=== PATIENT | female | born 1995 | race Caucasian/White ===

== ENCOUNTER 2020-03-10 14:40 | Inpatient (IN) | payer BC ==
[2020-03-10] MEDS ORDERED: Nalbuphine 10 MG/ML Syringe IVPUSH PRN (14:49)
[2020-03-10] MEDS ORDERED: Oxytocin/Lactated Ringers 10 UNIT/1,000 ML BAG IV SCH ×2 (15:00)
[2020-03-10] MEDS ORDERED: fentaNYL 100 MCG/2 ML SDV EPIDUR PRN (15:01)
[2020-03-10] MEDS ORDERED: ePHEDrine 50 MG/ML SDV IVPUSH PRN (15:01)
[2020-03-10] MEDS ORDERED: Ondansetron 4 MG/2 ML SDV IVPUSH PRN (15:01)
--- NOTE | 2020-03-10 15:07 | PCM.PREANE ---
Preanesthetic Assessment - Procedure Proposed Procedure: Epidural - Anesthesia/Transfusion/Family Hx Anesthesia History: Prior Anesthesia Without Reaction Family History of Anesthesia Reaction: No Transfusion History: No Prior Transfusion(s) Intubation History: Unknown - Review of Systems General: No Symptoms (Covid positive: one week ago/head cold), Fever, Chills Pulmonary: No Symptoms Cardiovascular: No Symptoms (Gestational HTN-Hyperreflexia), Edema Gastrointestinal: No Symptoms, Diarrhea, Nausea, Vomiting Neurological: No Symptoms (chiropractor with lower back pain), Headache (Migraines ) Other: Reports: None - Physical Assessment NPO Status Date: 03/10/20 NPO Status Time: 18:00 Vital Signs: HR: Sat: Temp: Resp: B/P: Height: 1.75 m Weight: 100.607 kg ASA Class: 2 Mental Status: Alert & Oriented x3 Airway Class: Mallampati = 2 Dentition: Reports: Normal Dentition, Caries Thyro-Mental Finger Breadths: 3 Mouth Opening Finger Breadths: 3 ROM/Head Extension: Full Lungs: Clear to Auscultation, Normal Respiratory Effort Cardiovascular: Regular Rate, Regular Rhythm, No Murmurs - Lab Values: All labs reviewed and noted and within acceptable ranges to proceed with epidural. - Allergies Allergies/Adverse Reactions: Allergies Allergy/AdvReac Type Severity Reaction Status Date / Time mushroom Allergy Anaphylactic Verified 03/10/20 14:58 Shock - Anesthesia Plan Pre-Op Medication Ordered: None - Acknowledgements Anesthesia Type Planned: Epidural Pt an Appropriate Candidate for the Planned Anesthesia: Yes Alternatives and Risks of Anesthesia Discussed w Pt/Guardian: Yes Pt/Guardian Understands and Agrees with Anesthesia Plan: Yes PreAnesthesia Questionnaire - HOME MEDS Home Medications: Home Meds Pnv No.103/Folic/Om3s/Fish Oil [ Gummies] 1 each PO DAILY 02/23/20 [History] Acetaminophen/Codeine [Tylenol with Codeine No.3 300MG/30MG] 1 tab PO ASDIRECTED PRN 03/10/20 [History] Ondansetron [Zofran] 1 tab PO DAILY PRN 03/10/20 [History] - CURRENT (IN HOUSE) MEDS Current Meds: Current Medications Ephedrine Sulfate (Ephedrine Sulfate) 5 mg IVPUSH ASDIRECTED PRN PRN Reason: Hypotension Fentanyl (Sublimaze) 100 mcg EPIDUR Q3H PRN PRN Reason: Pain Fentanyl/Bupivacaine HCl (Fentanyl/Bupivacaine/Ns 2 Mcg-0.125% 100 Ml) 100 ml EPIDUR ASDIRECTED KAY Lactated Ringer's (Ringers, Lactated) 1,000 mls @ 100 mls/hr IV ASDIRECTED KAY Ampicillin Sodium 2 gm/ Sodium (Chloride) 100 mls @ 200 mls/hr IV ONETIME ONE Stop: 03/10/20 15:59 Ampicillin Sodium 1 gm/ Sodium (Chloride) 100 mls @ 200 mls/hr IV Q4H KAY Oxytocin/Lactated Ringer's (Pitocin In Lr 10 Units/1,000 Ml) 10 unit in 1,000 mls @ 12 mls/hr IV TITRATE KAY; Protocol Oxytocin/Lactated Ringer's (Pitocin In Lr 10 Units/1,000 Ml) 10 unit in 1,000 mls @ 100 mls/hr IV .CONTINUOUS KAY Nalbuphine HCl (Nubain) 10 mg IVPUSH Q2H PRN PRN Reason: Pain Ondansetron HCl (Zofran) 4 mg IVPUSH Q4H PRN PRN Reason: Nausea/Vomiting Ondansetron HCl (Zofran) 4 mg IVPUSH ONETIME PRN PRN Reason: Nausea/Vomiting Discontinued Medications Miscellaneous Medication (Phenylephrine 1 Mg/10 Ml-Ns) 1 mg IVPUSH ONETIME ONE Stop: 03/10/20 15:02
[2020-03-10] MEDS ORDERED: Bupivacaine/fentaNYL/NS 100 ML Bag EPIDUR SCH (15:15)
[2020-03-10] MEDS ORDERED: Ampicillin 2 GM in Sodium Chloride 0.9% 100 ML IV ONE (15:30)
[2020-03-10] MEDS: Lactated Ringers 1,000 ML IV SCH ×2 (15:33→22:09)
--- NOTE | 2020-03-10 17:56 | PCM.LDHP ---
L&D History of Present Illness - General Date of Service: 03/10/20 Admit Problem/Dx: Patient Status Order with Admit Dx/Problem 03/10/20 14:49 Patient Status [ADT] Routine Admission Diagnosis/Problem Admission Diagnosis/Problem 03/10/20 17:42 Mile is a 23-year-old 1 para 0 white female who was admitted to labor and delivery at 38-3/7 weeks gestational age with an ABDI of 03/21/2020 with co mplaints of headache, edema, visual changes including blurry vision and double vision, hyperreflexia and borderline elevated blood pressures with findings consistent most probably with gestational hypertension. Source of Information: Patient History Limitations: Reports: No Limitations - History of Present Illness Introduction:: Mile is a 23-year-old 1 para 0 white female who was admitted to labor and delivery at 38-3/7 weeks gestational age with an ABDI of 03/21/2020 with complaints of headache, edema, visual changes including blurry vision and double vision, hyperreflexia and borderline elevated blood pressures with findings consistent most probably with gestational hypertension. Upon admission to labor and delivery patient was noted to be Covid positive and with rapid testing. LIQUOR RECTIFIER history: Mile is a 23-year-old 1 para 0. ADBI of 03/21/2020 is determined an early ultrasound and supported by multiple ultrasounds during the course of the remainder of the . Patient had menarche at approximately age 13. Cycles are regular. Last menstrual period was 05/11/2019 but was somewhat irregular and uncertain. ABDI set by early ultrasound. Patient denies any STIs. She denies any abnormal Pap smears. She is sexually active. course: Patient was initially seen early in the first trimester. She was seen on a regular basis throughout the course of the . Her weight gain was from her pregravid weight of 184 pounds to 224 pounds for 35 pound increase throughout the . Her fundal height growth has been appropriate. She is group B strep positive and is a candidate for ampicillin prophylaxis in L&D. She had a history of bacterial vaginosis that was treated during the course of the . She desires epidural. She has had frequent headaches during the . She plans to breast-feed. Prequel noninvasive screen was performed and is negative. Patient had elevated blood pressures during the course of the which started at approximately 6 weeks. Patient was evaluated on multiple occasions in clinic and at home with blood pressures in the 148-159 systolic range over the low to mid and upper 90s diastolic. The patient's protein creatinine ratio was mildly elevated. Remainder of preeclampsia labs were unremarkable. Blood pressures then normalized over the course of the last 1 to 2 weeks. She reports her blood pressures now at home on a daily basis have been in the 130s to high 80s to 90 range. She has become progressively more symptomatic with the above symptoms over the last week. Baby's activity has been normal. Patient received her influenza immunization on 02/02/2020. Her Tdap was given at the same time. She is rubella immune. Laboratory testing in shows blood to be A positive. First labs showed antibody screen to be negative. Her hemoglobin was 12.8 g/dL and platelets are 324,000. She is rubella immune. RPR is nonreactive. Hepatitis B surface antigen and HIV assays were both negative. GC and Chlamydia tests were both negative. Second trimester labs showed a hemoglobin of 11.4 g/dL and platelets that were 251,000. Her 1 hour GTT was normal at 79. Follow-up CBC on 02/22/2020 showed hemoglobin of 12.3 g/dL and platelets at 289,000. She is group B strep positive. Allergies: None Medications: 1. Tylenol 3 1-2 tabs every 4-6 hours as needed for headache 2. adult gummy vitamins daily. 3. Ferrous sulfate 325 mg p.o. daily. Past medical history: 1. Childhood asthma. Now resolved 2. Stomach ulcers evaluated with endoscopy and upper GI. Past surgical history: Unremarkable Family history: Mother with history of multiple miscarriage but otherwise is alive and well. Father is alive and well. Maternal grandmother with type 2 diabetes. Maternal grandfather with high cholesterol. Paternal grandmother with lung cancerwas a smoker. Paternal grandfather history unknown. Paternal great-grandmother with ovarian cancer historydeceased. No bleeding, clotting, anesthesia, asthma or related problems otherwise. Social history: Patient is single. She works for [employer]. She has recently been furloughed however. She is a college graduate. She lives in [place], [place] with her significant other Malik Marx. She does not use any significant also alcohol, drugs or tobacco. Review of systems: Patient has concerns in general are those as outlined in the HPI. Patient denies any fever chills or other systemic complaints. Baby has been active. HEENT, neck and back: Patient has had a chronic headache for some time progressive to the point of being 7 on a scale of 10 today. She denies any sore throat, lymphadenopathy. Skin: Negative Lungs: No infectious symptoms or shortness of breath Cardiovascular: No chest pain or exercise intolerance Breasts: No lumps, changes in size, pain, dimpling, discharge or axillary or supraclavicular concerns. GI: Negative : Changes associated with . Musculoskeletal: Negative Neurological: Negative Physical exam: In general the patient is well-developed, well-nourished, pleasant female of stated age in moderate distress secondary to headache and vision concerns On evaluation clinic blood pressure was 126/82. At home patient reported blood pressures to be 130s over high 80s.. Weight was 221.8. Her height is 5 feet 9. Prepregnancy body mass index was 24.8. Skin is warm dry without lesions. HEENT, neck and back within normal limits. Lungs are clear with good breath sounds in all lung anderson. Cardiovascular exam shows regular and rhythm without murmurs. Abdomen is gravid with fundal height of 40 cm. Baby in vertex presentation by Oscar maneuvers.. Genital evaluation per digital exam shows cervix to be 2 cm, 90% effaced, -3 station but had well applied to the cervix, mid position, soft. AROM is acc omplished with resultant clear amniotic fluid. AROM performed only after approximately 2 hours since first dose of ampicillin. Extremities show bilateral pedal edema which is 1+ in nature. This is been progressive over the last week. Neurological exam is within normal to the exception of 3+/4 deep tendon refill complexes in bilateral lower extremities. 2+/4 in bilateral upper extremities. No clonus is noted. Laboratory testing shows CBC with an H&H of 12.0 and 35.8. White count 7.72. Platelets 261,000. Fibrin degradation products less than 5. Fibrinogen 509. Liver function studies normal. Uric acid 5.8. Creatinine 0.6. Urine analysis unremarkable. - Related Data Allergies/Adverse Reactions: Allergies Allergy/AdvReac Type Severity Reaction Status Date / Time mushroom Allergy Anaphylactic Verified 03/10/20 14:58 Shock Home Medications: Home Meds Ferrous Sulfate [Iron] 325 mg PO DAILY 02/23/20 [History] Pnv No.103/Folic/Om3s/Fish Oil [ Gummies] 1 each PO DAILY 02/23/20 [History] Past Medical History Other Respiratory History: hx of asthma as a child; resolved Gastrointestinal History: Reports: Other (See Below) Other Gastrointestinal History: stomach ulcer LIQUOR RECTIFIER History: Reports: - Past Surgical History GI Surgical History: Reports: EGD Social & Family History - Tobacco Use Tobacco Use Status *Q: Never Tobacco User - Recreational Drug Use Recreational Drug Use: No H&P Review of Systems - Review of Systems: Review Of Systems: See Below L&D Exam - Exam Exam: See Below - Vital Signs Weight: 100.607 kg - Patient Data Lab Results Last 24 hrs: Laboratory Results - last 24 hr 03/10/20 03/10/20 03/10/20 Range/Units 15:00 15:20 15:20 WBC 7.72 (3.98-10.04) K/mm3 RBC 4.23 (3.98-5.22) M/mm3 Hgb 12.0 (11.2-15.7) gm/dl Hct 35.8 (34.1-44.9) % MCV 84.6 (79.4-94.8) fl MCH 28.4 (25.6-32.2) pg MCHC 33.5 (32.2-35.5) g/dl RDW Std Deviation 42.0 (36.4-46.3) fL Plt Count 261 (182-369) K/mm3 MPV 9.7 (9.4-12.3) fl Neut % (Auto) 74.5 H (34.0-71.1) % Lymph % (Auto) 17.5 L (19.3-51.7) % Peach % (Auto) 6.9 (4.7-12.5) % Eos % (Auto) 0.4 L (0.7-5.8) Baso % (Auto) 0.1 (0.1-1.2) % Neut # (Auto) 5.75 (1.56-6.13) K/mm3 Lymph # (Auto) 1.35 (1.18-3.74) K/mm3 Peach # (Auto) 0.53 H (0.24-0.36) K/mm3 Eos # (Auto) 0.03 L (0.04-0.36) K/mm3 Baso # (Auto) 0.01 (0.01-0.08) K/mm3 Fibrinogen 509 H (187-446) mg/dL Fibrin Degrad Products < 5 ug/ml (<5) ug/mL BUN (7-18) mg/dL Creatinine (0.55-1.02) mg/dL Est Cr Clr Drug Dosing mL/min Estimated GFR (MDRD) (>60) mL/min Uric Acid (2.6-6.0) mg/dL AST (15-37) U/L ALT (14-59) U/L Lactate Dehydrogenase (81-234) U/L SARS-CoV-2 RNA (RADHA) Positive H (NEGATIVE) Blood Type Gel Antibody Screen 03/10/20 03/10/20 Range/Units 15:20 15:20 WBC (3.98-10.04) K/mm3 RBC (3.98-5.22) M/mm3 Hgb (11.2-15.7) gm/dl Hct (34.1-44.9) % MCV (79.4-94.8) fl MCH (25.6-32.2) pg MCHC (32.2-35.5) g/dl RDW Std Deviation (36.4-46.3) fL Plt Count (182-369) K/mm3 MPV (9.4-12.3) fl Neut % (Auto) (34.0-71.1) % Lymph % (Auto) (19.3-51.7) % Peach % (Auto) (4.7-12.5) % Eos % (Auto) (0.7-5.8) Baso % (Auto) (0.1-1.2) % Neut # (Auto) (1.56-6.13) K/mm3 Lymph # (Auto) (1.18-3.74) K/mm3 Peach # (Auto) (0.24-0.36) K/mm3 Eos # (Auto) (0.04-0.36) K/mm3 Baso # (Auto) (0.01-0.08) K/mm3 Fibrinogen (187-446) mg/dL Fibrin Degrad Products (<5) ug/mL BUN 5 L (7-18) mg/dL Creatinine 0.6 (0.55-1.02) mg/dL Est Cr Clr Drug Dosing 152.40 mL/min Estimated GFR (MDRD) > 60 (>60) mL/min Uric Acid 5.8 (2.6-6.0) mg/dL AST 21 (15-37) U/L ALT 24 (14-59) U/L Lactate Dehydrogenase 167 (81-234) U/L SARS-CoV-2 RNA (RADHA) (NEGATIVE) Blood Type A POSITIVE Gel Antibody Screen Negative Result Diagrams: 03/10/20 15:20 03/10/20 15:20 Problem List Initiated/Reviewed/Updated: Yes Orders Last 24hrs: Active Orders 24 hr Category Date Time Status Patient Status [ADT] Routine ADT 03/10/20 14:49 Active Activity as Tolerated [RC] PFP Care 03/10/20 14:49 Active Communication Order [RC] ASDIRECTED Care 03/10/20 14:49 Active Heart Tones [RC] ASDIRECTED Care 03/10/20 14:50 Active Non Stress Test [RC] PER UNIT ROUTINE Care 03/10/20 14:49 Active Notify Provider [RC] ASDIRECTED Care 03/10/20 15:01 Active Notify Provider [RC] PFP Care 03/10/20 14:49 Active Notify Provider [RC] PRN Care 03/10/20 14:49 Active Oxygen Therapy [RC] ASDIRECTED Care 03/10/20 15:01 Active Pulse Oximetry [RC] ASDIRECTED Care 03/10/20 15:01 Active Vital Signs [RC] PER UNIT ROUTINE Care 03/10/20 14:49 Active Regular Diet [DIET] Diet 03/10/20 Lunch Active PROTEIN/CREATININE RATIO,URINE [URCHEM] Stat Lab 03/10/20 16:24 Received RAPID PLASMA REAGIN,RPR [CHEM] Routine Lab 03/10/20 15:20 Received UA W/MICROSCOPIC [URIN] Stat Lab 03/10/20 16:24 Received Ampicillin 1 gm Med 03/10/20 19:30 Active Sodium Chloride 0.9% [Normal Saline] 100 ml IV Q4H Bupivacaine/fentaNYL/NS [fentaNYL/Bupivacaine/NS 2 MCG- Med 03/10/20 15:15 Active 0.125% 100 ML] 100 ml EPIDUR ASDIRECTED Lactated Ringers [Ringers, Lactated] 1,000 ml Med 03/10/20 15:00 Active IV ASDIRECTED Nalbuphine [Nubain] Med 03/10/20 14:49 Active 10 mg IVPUSH Q2H PRN Ondansetron [Zofran] Med 03/10/20 15:01 Active 4 mg IVPUSH ONETIME PRN Ondansetron [Zofran] Med 03/10/20 14:49 Active 4 mg IVPUSH Q4H PRN Oxytocin/Lactated Ringers [Pitocin in LR 10 Units/1,000 Med 03/10/20 15:00 Active ML] 10 unit in 1,000 ml IV .CONTINUOUS Oxytocin/Lactated Ringers [Pitocin in LR 10 Units/1,000 Med 03/10/20 15:00 Active ML] 10 unit in 1,000 ml IV TITRATE ePHEDrine [ePHEDrine sulfate] Med 03/10/20 15:01 Active 5 mg IVPUSH ASDIRECTED PRN fentaNYL [Sublimaze] Med 03/10/20 15:01 Active 100 mcg EPIDUR Q3H PRN Electronic Heart Tones Ext w TOCO [WOMSER] Oth 03/10/20 14:49 Ordered Routine Electronic Heart Tones Internal [WOMSER] Per Unit Oth 03/10/20 14:49 Ordered Routine PIH Panel [OM.PC] Stat Oth 03/10/20 14:49 Ordered Peripheral IV Insertion Adult [OM.PC] Routine Oth 03/10/20 14:49 Ordered Resuscitation Status Routine Resus Stat 03/10/20 14:49 Ordered Medication Orders Ephedrine Sulfate (Ephedrine Sulfate) 5 mg IVPUSH ASDIRECTED PRN PRN Reason: Hypotension Fentanyl (Sublimaze) 100 mcg EPIDUR Q3H PRN PRN Reason: Pain Fentanyl/Bupivacaine HCl (Fentanyl/Bupivacaine/Ns 2 Mcg-0.125% 100 Ml) 100 ml EPIDUR ASDIRECTED KAY Lactated Ringer's (Ringers, Lactated) 1,000 mls @ 100 mls/hr IV ASDIRECTED KAY Last Admin: 03/10/20 15:33 Dose: 100 mls/hr Documented by: ILANALAU Ampicillin Sodium 1 gm/ Sodium (Chloride) 100 mls @ 200 mls/hr IV Q4H KAY Oxytocin/Lactated Ringer's (Pitocin In Lr 10 Units/1,000 Ml) 10 unit in 1,000 mls @ 12 mls/hr IV TITRATE KAY; Protocol Last Admin: 03/10/20 16:08 Dose: 2 munits/min, 12 mls/hr Documented by: JOHNNIE Oxytocin/Lactated Ringer's (Pitocin In Lr 10 Units/1,000 Ml) 10 unit in 1,000 mls @ 100 mls/hr IV .CONTINUOUS KAY Nalbuphine HCl (Nubain) 10 mg IVPUSH Q2H PRN PRN Reason: Pain Last Admin: 03/10/20 15:33 Dose: 10 mg Documented by: JOHNNIE Ondansetron HCl (Zofran) 4 mg IVPUSH Q4H PRN PRN Reason: Nausea/Vomiting Ondansetron HCl (Zofran) 4 mg IVPUSH ONETIME PRN PRN Reason: Nausea/Vomiting Assessment/Plan Comment:: 1. 38-3/7-week intrauterine , multiple symptoms/clinical signs supporting diagnosis of gestational hypertensionpatient admitted for induction of labor. 2. Covid19+ status diagnosed at time of admission to labor and delivery 3. Group B strep positive statuspatient candidate for ampicillin prophylaxis in labor and delivery 4. Patient desires epidural 5. Patient plans to breast-feed 6. Risk factors otherwise for include increased weight, Gestational hypertension, Covid positive status 7. Patient is rubella immune 8. Patient is received her flu immunization and her Tdap during the course of the Plan: 1. Pitocin/artificial rupture of membranes induction of labor per routine 2. Electronic monitoring 3. Covid19 precautions to be implemented 4. Epidural as needed for labor analgesia 5. Support breast-feeding decision. 6. RPR, CBC upon admission 7. Anticipate normal spontaneous vaginal delivery
[2020-03-10] MEDS ORDERED: Calcium Carbonate 500 MG Tab.Chew PO PRN (18:11)
[2020-03-10] MEDS: Ondansetron 4 MG/2 ML SDV IVPUSH PRN (18:50)
[2020-03-10] MEDS: Ampicillin 1 GM in Sodium Chloride 0.9% 100 ML IV SCH ×2 (19:19→23:22)
[2020-03-11] MEDS: Lactated Ringers 1,000 ML IV SCH (00:24)
[2020-03-11] MEDS: Ondansetron 4 MG/2 ML SDV IVPUSH PRN (01:21)
--- NOTE | 2020-03-11 04:04 | PCM.SN.2 ---
- Free Text/Narrative Note: Delivery note: Mile is a 23-year-old 1 para 0 white female who was admitted to labor and delivery at 38-3/7 weeks gestational age with an ABDI of 03/21/2020 with complaints of headache, edema, visual changes including blurry vision and double vision, hyperreflexia and borderline elevated blood pressures with findings consistent most probably with gestational hypertension. She underwent induction of labor with Pitocin initially and AROM later with resultant clear amniotic fluid. She had preeclampsia labs drawn which returned essentially within normal limits. She was found to be Covid positive upon admission to L&D. Isolation precautions thereafter were taken per routine. She had an epidural placed for labor analgesia and had good results with the epidural. She progressed in labor throughout the course of the evening night and at approximately 0300 hrs. on 03/11/2020 she became completely dilated. She pushed for short period of time and delivered a viable, corbin, female infant with Apgars of 9 and 9, a weight of 3286 grams (7 pounds, 4 ounces) in a direct occiput anterior position at 0334 hrs. on 03/11/2020. The baby was placed on mom's abdomen. Cord was allowed to pulsate for 3 minutes. The Pitocin was increased to 500 cc/h to facilitate increase in uterine tone and reduce likelihood of bleeding. The umbilical cord was then clamped x2 and cut by the baby's Father Malik. The umbilical cord had 3 vessels. Cord blood was obtained. Patient was noted to have a very small first-degree perineal laceration which was repaired with 1 single [id number] suture of 3-0 Monocryl. Epidural analgesia was used for perineal anesthesia for this suture. The placenta delivered in a Ho presentation, appeared intact and complete and was discarded per patient desire. The patient plans to breast-feed. Isolation precautions will be taken regarding Covid positive status. Estimated blood loss was 100 cc. Condition: Good
[2020-03-11] MEDS ORDERED: Witch Hazel Medicated Pads 40/Jar TOP PRN (04:55)
[2020-03-11] MEDS ORDERED: Benzocaine/Menthol 20%-0.5% Spray 56 GM Canister TOP PRN (04:55)
[2020-03-11] MEDS: Acetaminophen 325 MG Tab PO PRN (05:23)
[2020-03-11] MEDS: Prenatal Multivitamin with Calcium/Folic Acid/Iron Tab PO SCH (09:00)
--- NOTE | 2020-03-11 10:03 | PCM48HPAN ---
Post Anesthesia Note - EVALUATION WITHIN 48HRS OF ANESTHETIC Vital Signs in Normal Range: Yes Patient Participated in Evaluation: No (per RN) Respiratory Function Stable: Yes Airway Patent: Yes Cardiovascular Function Stable: Yes Hydration Status Stable: Yes Pain Control Satisfactory: Yes Nausea and Vomiting Control Satisfactory: Yes Mental Status Recovered: Yes Vital Signs: Last Vital Signs Temp 37.0 C 03/11/20 09:00 Pulse 57 L 03/11/20 09:00 Resp 16 03/11/20 09:00 BP 127/71 03/11/20 09:00 Pulse Ox 100 03/11/20 09:00 - COMMENTS/OBSERVATIONS Free Text/Narrative:: no anesthesia complications noted
[2020-03-11] MEDS: Ibuprofen 600 MG Tab PO PRN ×3 (11:00→20:16)
[2020-03-11] MEDS ORDERED: Bupivacaine 0.25% 10 ML SDV ONE (14:00)
[2020-03-11] MEDS: Docusate Sodium 100 MG Cap PO PRN (20:16)
--- NOTE | 2020-03-12 00:57 | PCM.PNPP ---
- General Info Date of Service: 03/12/20 Functional Status: Reports: Pain Controlled, Tolerating Diet, Ambulating, Urinating - Review of Systems General: Reports: No Symptoms Pulmonary: Reports: No Symptoms Cardiovascular: Reports: No Symptoms Gastrointestinal: Reports: No Symptoms Genitourinary: Reports: No Symptoms Musculoskeletal: Reports: No Symptoms Neurological: Reports: No Symptoms - Patient Data Vital Signs - Most Recent: Last Vital Signs Temp 36.4 C 03/11/20 20:11 Pulse 64 03/11/20 20:11 Resp 16 03/11/20 20:11 BP 113/72 03/11/20 20:11 Pulse Ox 99 03/11/20 20:11 Weight - Most Recent: 100.607 kg I&O - Last 24 Hours: Intake & Output 03/11/20 03/11/20 03/12/20 14:59 22:59 06:59 Intake Total 450 Balance 450 Med Orders - Current: Current Medications Acetaminophen (Tylenol) 650 mg PO Q4H PRN PRN Reason: mild pain or fever Last Admin: 03/11/20 05:23 Dose: 650 mg Documented by: Benzocaine/Menthol (Dermoplast Pain Relief [place]) 0 gm TOP ASDIRECTED PRN PRN Reason: Perineal Comfort Measure Last Admin: 03/11/20 05:21 Dose: 1 canister Documented by: Docusate Sodium (Colace) 100 mg PO BID PRN PRN Reason: Constipation Last Admin: 03/11/20 20:16 Dose: 100 mg Documented by: Ibuprofen (Motrin) 600 mg PO Q4H PRN PRN Reason: Mild pain or fever Last Admin: 03/11/20 20:16 Dose: 600 mg Documented by: Prenat Multivit/Pitt/Iron/Folic Ac ( Plus Iron) 1 each PO DAILY KAY Last Admin: 03/11/20 09:00 Dose: 1 each Documented by: Andrea Juarez ([facility]) 1 pad TOP ASDIRECTED PRN PRN Reason: Perineal Comfort Measure Last Admin: 03/11/20 05:22 Dose: 1 tub Documented by: Discontinued Medications Bupivacaine HCl (Sensorcaine-Mpf 0.25%) 10 ml .ROUTE .STK-MED ONE Stop: 03/11/20 14:01 Calcium Carbonate/Glycine (Tums) 500 mg PO Q2HR PRN PRN Reason: Indigestion Last Admin: 03/10/20 18:50 Dose: 500 mg Documented by: Ephedrine Sulfate (Ephedrine Sulfate) 5 mg IVPUSH ASDIRECTED PRN PRN Reason: Hypotension Fentanyl (Sublimaze) 100 mcg EPIDUR Q3H PRN PRN Reason: Pain Last Admin: 03/10/20 22:10 Dose: 100 mcg Documented by: Fentanyl/Bupivacaine HCl (Fentanyl/Bupivacaine/Ns 2 Mcg-0.125% 100 Ml) 100 ml EPIDUR ASDIRECTED KAY Last Admin: 03/10/20 22:11 Dose: 100 ml Documented by: Lactated Ringer's (Ringers, Lactated) 1,000 mls @ 100 mls/hr IV ASDIRECTED [facility] Last Admin: 03/11/20 00:24 Dose: 100 mls/hr Documented by: Ampicillin Sodium 2 gm/ Sodium (Chloride) 100 mls @ 200 mls/hr IV ONETIME ONE Stop: 03/10/20 15:59 Last Admin: 03/10/20 15:33 Dose: 200 mls/hr Documented by: Ampicillin Sodium 1 gm/ Sodium (Chloride) 100 mls @ 200 mls/hr IV Q4H [facility] Last Admin: 03/10/20 23:22 Dose: 200 mls/hr Documented by: Oxytocin/Lactated Ringer's (Pitocin In Lr 10 Units/1,000 Ml) 10 unit in 1,000 mls @ 12 mls/hr IV TITRATE [facility]; Protocol Last Titration: 03/10/20 18:00 Dose: 8 munits/min, 48 mls/hr Documented by: Oxytocin/Lactated Ringer's (Pitocin In Lr 10 Units/1,000 Ml) 10 unit in 1,000 mls @ 100 mls/hr IV .CONTINUOUS [facility] Miscellaneous Medication (Phenylephrine 1 Mg/10 Ml-Ns) 1 mg IVPUSH ONETIME ONE Stop: 03/10/20 15:02 Nalbuphine HCl (Nubain) 10 mg IVPUSH Q2H PRN PRN Reason: Pain Last Admin: 03/10/20 15:33 Dose: 10 mg Documented by: Ondansetron HCl (Zofran) 4 mg IVPUSH Q4H PRN PRN Reason: Nausea/Vomiting Last Admin: 03/11/20 01:21 Dose: 4 mg Documented by: Ondansetron HCl (Zofran) 4 mg IVPUSH ONETIME PRN PRN Reason: Nausea/Vomiting - Infant Interaction Disposition, : in Room with Family Infant Interaction: Holding Infant Infant Feeding: Bottle Fed Support Person: Significant Other - Recovery Exam Fundal Tone: Firm Fundal Level: At Umbilicus Fundal Placement: Midline Lochia Amount: Small, Moderate Lochia Color: Rubra/Red Episiotomy/Laceration: Approximated Bladder Status: Voiding - Exam General: Alert, Oriented, Cooperative GI/Abdominal Exam: Soft, Non-Tender Extremities: Normal Inspection - Problem List & Annotations (1) Gestational [-induced] hypertension without significant proteinuria, complicating childbirth SNOMED Code(s): 20426754, 978832469 Code(s): O13.4 - GESTATNL HTN WITHOUT SIGNIFICANT PROTEIN, COMP CHILDBIRTH Status: Acute Current Visit: Yes (2) Vaginal delivery SNOMED Code(s): 336077992 Code(s): O80 - ENCOUNTER FOR FULL-TERM UNCOMPLICATED DELIVERY Status: Acute Current Visit: Yes (3) COVID-19 affecting , antepartum SNOMED Code(s): 725571634, 093694898 Code(s): O98.519 - OTHER VIRAL DISEASES COMPLICATING , UNSP TRIMESTER; U07.1 - COVID-19 Status: Acute Current Visit: Yes - Problem List Review Problem List Initiated/Reviewed/Updated: Yes - Assessment Assessment:: PPD#1 - Plan Plan:: * Routine cares * bottle feeding * BP's have been mostly normal since delivery, one elevated value documented. Continue to monitor closely * COVID positive - continue to monitor. Asymptomatic * Discharge home tomorrow
[2020-03-12] MEDS: Ibuprofen 600 MG Tab PO PRN ×3 (02:11→20:52)
[2020-03-12] MEDS: Acetaminophen 325 MG Tab PO PRN (04:02)
[2020-03-12] MEDS: Docusate Sodium 100 MG Cap PO PRN (08:57)
[2020-03-12] MEDS: Prenatal Multivitamin with Calcium/Folic Acid/Iron Tab PO SCH (17:07)
[2020-03-13] MEDS: Ibuprofen 600 MG Tab PO PRN (03:27)
--- NOTE | 2020-03-13 07:25 | PCM.PNPP ---
- General Info Date of Service: 03/13/20 Functional Status: Reports: Pain Controlled, Tolerating Diet, Ambulating, Urinating - Review of Systems General: Reports: No Symptoms Pulmonary: Reports: No Symptoms Cardiovascular: Reports: No Symptoms Gastrointestinal: Reports: No Symptoms Genitourinary: Reports: No Symptoms Musculoskeletal: Reports: No Symptoms - Patient Data Vital Signs - Most Recent: Last Vital Signs Temp 36.8 C 03/13/20 03:24 Pulse 70 03/13/20 03:24 Resp 15 03/13/20 03:24 BP 115/72 03/13/20 03:24 Pulse Ox 98 03/13/20 03:24 Weight - Most Recent: 100.607 kg Med Orders - Current: Current Medications Acetaminophen (Tylenol) 650 mg PO Q4H PRN PRN Reason: mild pain or fever Last Admin: 03/12/20 04:02 Dose: 650 mg Documented by: Benzocaine/Menthol (Dermoplast Pain Relief [place]) 0 gm TOP ASDIRECTED PRN PRN Reason: Perineal Comfort Measure Last Admin: 03/11/20 05:21 Dose: 1 canister Documented by: Docusate Sodium (Colace) 100 mg PO BID PRN PRN Reason: Constipation Last Admin: 03/12/20 08:57 Dose: 100 mg Documented by: Ibuprofen (Motrin) 600 mg PO Q4H PRN PRN Reason: Mild pain or fever Last Admin: 03/13/20 03:27 Dose: 600 mg Documented by: Prenat Multivit/Office Support Clerk/Iron/Folic Ac ( Plus Iron) 1 each PO DAILY KAY Last Admin: 03/12/20 17:07 Dose: Not Given Documented by: Andrea Juarez ([facility]) 1 pad TOP ASDIRECTED PRN PRN Reason: Perineal Comfort Measure Last Admin: 03/11/20 05:22 Dose: 1 tub Documented by: Discontinued Medications Bupivacaine HCl (Sensorcaine-Mpf 0.25%) 10 ml .ROUTE .STK-MED ONE Stop: 03/11/20 14:01 Calcium Carbonate/Glycine (Tums) 500 mg PO Q2HR PRN PRN Reason: Indigestion Last Admin: 03/10/20 18:50 Dose: 500 mg Documented by: Ephedrine Sulfate (Ephedrine Sulfate) 5 mg IVPUSH ASDIRECTED PRN PRN Reason: Hypotension Fentanyl (Sublimaze) 100 mcg EPIDUR Q3H PRN PRN Reason: Pain Last Admin: 03/10/20 22:10 Dose: 100 mcg Documented by: Fentanyl/Bupivacaine HCl (Fentanyl/Bupivacaine/Ns 2 Mcg-0.125% 100 Ml) 100 ml EPIDUR ASDIRECTED [facility] Last Admin: 03/10/20 22:11 Dose: 100 ml Documented by: Lactated Ringer's (Ringers, Lactated) 1,000 mls @ 100 mls/hr IV ASDIRECTED [facility] Last Admin: 03/11/20 00:24 Dose: 100 mls/hr Documented by: Ampicillin Sodium 2 gm/ Sodium (Chloride) 100 mls @ 200 mls/hr IV ONETIME ONE Stop: 03/10/20 15:59 Last Admin: 03/10/20 15:33 Dose: 200 mls/hr Documented by: Ampicillin Sodium 1 gm/ Sodium (Chloride) 100 mls @ 200 mls/hr IV Q4H [facility] Last Admin: 03/10/20 23:22 Dose: 200 mls/hr Documented by: Oxytocin/Lactated Ringer's (Pitocin In Lr 10 Units/1,000 Ml) 10 unit in 1,000 mls @ 12 mls/hr IV TITRATE [facility]AY; Protocol Last Titration: 03/10/20 18:00 Dose: 8 munits/min, 48 mls/hr Documented by: Oxytocin/Lactated Ringer's (Pitocin In Lr 10 Units/1,000 Ml) 10 unit in 1,000 mls @ 100 mls/hr IV .CONTINUOUS [facility] Miscellaneous Medication (Phenylephrine 1 Mg/10 Ml-Ns) 1 mg IVPUSH ONETIME ONE Stop: 03/10/20 15:02 Nalbuphine HCl (Nubain) 10 mg IVPUSH Q2H PRN PRN Reason: Pain Last Admin: 03/10/20 15:33 Dose: 10 mg Documented by: Ondansetron HCl (Zofran) 4 mg IVPUSH Q4H PRN PRN Reason: Nausea/Vomiting Last Admin: 03/11/20 01:21 Dose: 4 mg Documented by: Ondansetron HCl (Zofran) 4 mg IVPUSH ONETIME PRN PRN Reason: Nausea/Vomiting - Interaction Infant Disposition, : [place] in Room with Family Infant Interaction: Holding Infant Feeding: Bottle Fed Infant Support Person: Significant Other - Recovery Exam Fundal Tone: Firm Fundal Level: At Umbilicus Fundal Placement: Midline Lochia Amount: Small Lochia Color: Rubra/Red Perineum Description: Other (see below) Other Perinuem Description: 1st degree with repair Episiotomy/Laceration: Approximated Bladder Status: Nonpalpable, Voiding Urinary Elimination: Voided - Exam General: Alert, Oriented, Cooperative GI/Abdominal Exam: Soft, Non-Tender Extremities: Normal Inspection Skin: Warm, Dry, Intact - Problem List & Annotations (1) Gestational [-induced] hypertension without significant proteinuria, complicating childbirth SNOMED Code(s): 75036669, 934186939 Code(s): O13.4 - GESTATNL HTN WITHOUT SIGNIFICANT PROTEIN, COMP CHILDBIRTH Status: Acute Current Visit: Yes (2) Vaginal delivery SNOMED Code(s): 170465908 Code(s): O80 - ENCOUNTER FOR FULL-TERM UNCOMPLICATED DELIVERY Status: Acute Current Visit: Yes (3) COVID-19 affecting , antepartum SNOMED Code(s): 567262204, 491050588 Code(s): O98.519 - OTHER VIRAL DISEASES COMPLICATING , UNSP TRIMESTER; U07.1 - COVID-19 Status: Acute Current Visit: Yes - Problem List Review Problem List Initiated/Reviewed/Updated: Yes - My Orders Last 24 Hours: My Active Orders 03/13/20 07:25 Ready for Discharge [RC] PER UNIT ROUTINE - Assessment Assessment:: PPD#2 - Plan Plan:: * Routine cares * bottle feeding * BP's essentially normal - follow up with Dr. Olivares's clinic in about 1 week * COVID positive - Asymptomatic * Discharge home today
--- NOTE | 2020-03-13 07:26 | PCM.DCSUM1 ---
Discharge Summary - Discharge Data Discharge Date: 03/13/20 Discharge Disposition: Home, Self-Care 01 Condition: Good - Referral to Home Health Primary Care Physician: Johnny Olivares MD - Discharge Diagnosis/Problem(s) (1) Gestational [-induced] hypertension without significant proteinuria, complicating childbirth SNOMED Code(s): 19453999, 909935258 ICD Code: O13.4 - GESTATNL HTN WITHOUT SIGNIFICANT PROTEIN, COMP CHILDBIRTH Status: Acute Current Visit: Yes (2) Vaginal delivery SNOMED Code(s): 395464895 ICD Code: O80 - ENCOUNTER FOR FULL-TERM UNCOMPLICATED DELIVERY Status: Acute Current Visit: Yes (3) COVID-19 affecting , antepartum SNOMED Code(s): 252058553, 137538988 ICD Code: O98.519 - OTHER VIRAL DISEASES COMPLICATING , UNSP TRIMESTER; U07.1 - COVID-19 Status: Acute Current Visit: Yes - Patient Summary/Data Complications: None Consults: Consultations 03/11/20 07:22 Consult to Case Management/Food And Beverage Order Clerk [CONS] Routine Recommended Follow-up Testing/Procedures: Follow up in 2-3 weeks Hospital Course: 24 y/o at 38 3/7 wks who was admitted for IOL for gestational HTN. Did well with induction and underwent an uncomplicated . See delivery note. BP's mostly normal after delivery with rare mild range values. Otherwise was noted to be an asymptomatic carrier of COVID. Did well in regards to this diagnosis. Was discharged home on PPD#2 - Patient Instructions Diet: Regular Diet as Tolerated Activity: As Tolerated Activity, Other: Pelvic rest for 6 weeks Driving: May Drive Today Showering/Bathing: May Shower Showering/Bathing, Other: May Bathe Notify Provider of: Fever, Increased Pain, Swelling and Redness, Drainage, Nausea and/or Vomiting - Discharge Plan *PRESCRIPTION DRUG MONITORING PROGRAM REVIEWED*: No *COPY OF PRESCRIPTION DRUG MONITORING REPORT IN PATIENT [place]OTT[place]: No Home Medications: Home Meds Pnv No.103/Folic/Om3s/Fish Oil [ Gummies] 1 each PO DAILY 02/23/20 [History] Acetaminophen [Tylenol] 650 mg PO Q4H PRN tablet 03/13/20 [Rx] Docusate Sodium [Colace] 100 mg PO BID PRN cap 03/13/20 [Rx] Ibuprofen [Motrin] 600 mg PO Q4H PRN tablet 03/13/20 [Rx] Referrals: Johnny Olivares MD [Primary Care Provider] - (2-3 weeks for check ) - Discharge Summary/Plan Comment DC Time >30 min.: No - Patient Data Vitals - Most Recent: Last Vital Signs Temp 36.8 C 03/13/20 03:24 Pulse 70 03/13/20 03:24 Resp 15 03/13/20 03:24 BP 115/72 03/13/20 03:24 Pulse Ox 98 03/13/20 03:24 Weight - Most Recent: 100.607 kg Med Orders - Current: Current Medications Acetaminophen (Tylenol) 650 mg PO Q4H PRN PRN Reason: mild pain or fever Last Admin: 03/12/20 04:02 Dose: 650 mg Documented by: Benzocaine/Menthol (Dermoplast Pain Relief [place]) 0 gm TOP ASDIRECTED PRN PRN Reason: Perineal Comfort Measure Last Admin: 03/11/20 05:21 Dose: 1 canister Documented by: Docusate Sodium (Colace) 100 mg PO BID PRN PRN Reason: Constipation Last Admin: 03/12/20 08:57 Dose: 100 mg Documented by: Ibuprofen (Motrin) 600 mg PO Q4H PRN PRN Reason: Mild pain or fever Last Admin: 03/13/20 03:27 Dose: 600 mg Documented by: Prenat Multivit/Jar Capper/Iron/Folic Ac ( Plus Iron) 1 each PO DAILY KAY Last Admin: 03/12/20 17:07 Dose: Not Given Documented by: Andrea Juarez ([facility]) 1 pad TOP ASDIRECTED PRN PRN Reason: Perineal Comfort Measure Last Admin: 03/11/20 05:22 Dose: 1 tub Documented by: Discontinued Medications Bupivacaine HCl (Sensorcaine-Mpf 0.25%) 10 ml .ROUTE .STK-MED ONE Stop: 03/11/20 14:01 Calcium Carbonate/Glycine (Tums) 500 mg PO Q2HR PRN PRN Reason: Indigestion Last Admin: 03/10/20 18:50 Dose: 500 mg Documented by: Ephedrine Sulfate (Ephedrine Sulfate) 5 mg IVPUSH ASDIRECTED PRN PRN Reason: Hypotension Fentanyl (Sublimaze) 100 mcg EPIDUR Q3H PRN PRN Reason: Pain Last Admin: 03/10/20 22:10 Dose: 100 mcg Documented by: Fentanyl/Bupivacaine HCl (Fentanyl/Bupivacaine/Ns 2 Mcg-0.125% 100 Ml) 100 ml EPIDUR ASDIRECTED [facility] Last Admin: 03/10/20 22:11 Dose: 100 ml Documented by: Lactated Ringer's (Ringers, Lactated) 1,000 mls @ 100 mls/hr IV ASDIRECTED [facility] Last Admin: 03/11/20 00:24 Dose: 100 mls/hr Documented by: Ampicillin Sodium 2 gm/ Sodium (Chloride) 100 mls @ 200 mls/hr IV ONETIME ONE Stop: 03/10/20 15:59 Last Admin: 03/10/20 15:33 Dose: 200 mls/hr Documented by: Ampicillin Sodium 1 gm/ Sodium (Chloride) 100 mls @ 200 mls/hr IV Q4H [facility] Last Admin: 03/10/20 23:22 Dose: 200 mls/hr Documented by: Oxytocin/Lactated Ringer's (Pitocin In Lr 10 Units/1,000 Ml) 10 unit in 1,000 mls @ 12 mls/hr IV TITRATE [facility]; Protocol Last Titration: 03/10/20 18:00 Dose: 8 munits/min, 48 mls/hr Documented by: Oxytocin/Lactated Ringer's (Pitocin In Lr 10 Units/1,000 Ml) 10 unit in 1,000 mls @ 100 mls/hr IV .CONTINUOUS [facility] Miscellaneous Medication (Phenylephrine 1 Mg/10 Ml-Ns) 1 mg IVPUSH ONETIME ONE Stop: 03/10/20 15:02 Nalbuphine HCl (Nubain) 10 mg IVPUSH Q2H PRN PRN Reason: Pain Last Admin: 03/10/20 15:33 Dose: 10 mg Documented by: Ondansetron HCl (Zofran) 4 mg IVPUSH Q4H PRN PRN Reason: Nausea/Vomiting Last Admin: 03/11/20 01:21 Dose: 4 mg Documented by: Ondansetron HCl (Zofran) 4 mg IVPUSH ONETIME PRN PRN Reason: Nausea/Vomiting
== END 2020-03-13 11:25 | disposition home or self-care (01) | DRG 560 ==
LOC: JD.OB 14:40 → OBSVTOIN 03-11 03:34 → JD.MS 03-11 03:35 → JD.OB 03-11 14:00
PROVIDERS: ADMIT Obstetrics & Gynecology; ATTEND Obstetrics & Gynecology
PROC: 10E0XZZ Delivery of Products of Conception, External Approach (ICD-10-PCS; principal; 2020-03-11)
PROC: 10907ZC Drainage of Amniotic Fluid, Therapeutic from Products of Conception, Via Natural or Artificial Opening (ICD-10-PCS; 2020-03-11)
PROC: 3E033VJ Introduction of Other Hormone into Peripheral Vein, Percutaneous Approach (ICD-10-PCS; 2020-03-11)
PROC: 0HQ9XZZ Repair Perineum Skin, External Approach (ICD-10-PCS; 2020-03-11)
PROC: 3E0R3BZ Introduction of Anesthetic Agent into Spinal Canal, Percutaneous Approach (ICD-10-PCS; 2020-03-11)
PROC: 00HU33Z Insertion of Infusion Device into Spinal Canal, Percutaneous Approach (ICD-10-PCS; 2020-03-11)
DX: O13.4 Gestational [pregnancy-induced] hypertension without significant proteinuria, complicating childbirth (principal); Z37.0 Single live birth; O98.52 Other viral diseases complicating childbirth; U07.1 COVID-19; O70.0 First degree perineal laceration during delivery; Z91.018 Allergy to other foods
CPT/HCPCS: 01967; 36415; 51701; 59025; 59409; 81001; 82565; 82570; 83615; 84156; 84450; 84460; 84520; 84550; 85025; 85362; 85384; 86592; 86850; 86900; 86901; A9270-GY; J0290; J2300; J2405; J2590; J3010; J3490; J7050; J7120; U0002